=== PATIENT | female | born 1990 ===

== ENCOUNTER 2021-07-22 13:24 | Emergency (ER) | payer SELFPAY ==
[2021-07-22] MEDS ORDERED: TETANUS,DIPH,PERTUSS(ACELL) VACCINE 0.5 ML SYRINGE IM ONE (14:12)
[2021-07-22] MEDS ORDERED: LIDOCAINE 2%/EPINEPHRINE 1:200,000 VIAL (20 ML) INFILTRATI ONE (14:12)
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
[2021-07-22 17:13] VITALS: BP 103/54
== END 2021-07-22 17:41 | disposition home or self-care (01) ==
LOC: ED 13:24
DX: S01.01XA Laceration without foreign body of scalp, initial encounter (principal); S13.4XXA Sprain of ligaments of cervical spine, initial encounter; R51.9 Headache, unspecified; X58.XXXA Exposure to other specified factors, initial encounter; Y93.89 Activity, other specified; Y92.89 Other specified places as the place of occurrence of the external cause; Y99.8 Other external cause status
CPT/HCPCS: 12002; 70450; 72125; 90471; 90715; 99283; J3490